=== PATIENT | female | born 1980 | race Caucasian/White ===

== ENCOUNTER 2018-03-11 13:36 | Emergency (ER) | payer BC ==
[~2018-03-11] VITALS: Ht 162.6 cm; Wt 75.8 kg
[~2018-03-11 13:36] MED LIST: BRINTELLIX5 MG PO; CELEXA20 MG PO; CLONAZEPAM 0.50.5 M1 PO; IBUPROFEN 800800 MG PO; NORFLEX100 MG PO; TRAZODONE HCL50 MG PO; ULTRAM 50MG TAB50 MG PO; WELCHOL 625 MG625 M1 PO
[2018-03-11] MEDS ORDERED: UNICOMPLEX M TA1 TA1 PO (13:42)
[2018-03-11] MEDS ORDERED: MEDROLDOSEPACK PO (16:37)
[2018-03-11 16:49] VITALS: BP 105/66
== END 2018-03-11 16:50 | disposition home or self-care (01) ==
LOC: M.ERS 13:36
DX: R22.32 Localized swelling, mass and lump, left upper limb (principal); R20.0 Anesthesia of skin; M79.602 Pain in left arm; M79.7 Fibromyalgia; Z88.2 Allergy status to sulfonamides; Z88.1 Allergy status to other antibiotic agents